=== PATIENT | male | born 1985 | race Caucasian/White ===

== ENCOUNTER 2016-12-09 22:43 | Emergency (ER) | payer OTHER ==
[2016-12-10 00:11] VITALS: BP 135/86
== END 2016-12-10 00:11 | disposition home or self-care (01) ==
LOC: ED 22:43
DX: S71.111A Laceration without foreign body, right thigh, initial encounter (principal); W31.89XA Contact with other specified machinery, initial encounter; Y93.89 Activity, other specified; Y99.8 Other external cause status; Y92.89 Other specified places as the place of occurrence of the external cause
CPT/HCPCS: 90715